=== PATIENT | female | born 1930 | race Hispanic/Latino ===

== ENCOUNTER 2021-11-15 20:46 | Emergency (ER) | payer OTHER ==
[~2021-11-15] VITALS: Ht 157.5 cm; Wt 61.2 kg
[2021-11-15] MEDS ORDERED: AMOXICILLIN/CLAVULANATE K 875 MG TAB PO STA (21:42)
[2021-11-15] MEDS ORDERED: LIDOCAINE VISC 2% SOLN 15 ML UDC PO ONE (21:45)
[2021-11-15] MEDS ORDERED: ACETAMINOPHEN 325 MG TAB PO ONE (21:45)
[2021-11-15] MEDS ORDERED: LIDOCAINE VISC 2% SOLN 15 ML UDC ONE (21:46)
[2021-11-15] MEDS ORDERED: AMOXICILLIN500 MG PO (21:53)
[2021-11-15] MEDS ORDERED: AMOXICILLIN/CLAVULANATE K 875 MG TAB ONE (22:00)
[2021-11-15] MEDS ORDERED: ACETAMINOPHEN 325 MG TAB ONE (22:01)
[2021-11-15 22:07] VITALS: BP 154/70
== END 2021-11-15 22:07 | disposition home or self-care (01) ==
LOC: FSED 20:55
DX: K08.89 Other specified disorders of teeth and supporting structures (principal); I10 Essential (primary) hypertension
CPT/HCPCS: 99282